=== PATIENT | male | born 1980 | race American Indian/Alaskan Native ===

== ENCOUNTER 2021-02-17 11:51 | Emergency (ER) | payer MEDICAID ==
--- NOTE | 2021-02-17 12:18 | Emergency Department Report ---
History of Present Illness - General Chief Complaint: Overdose Stated Complaint: OD Time Seen by Provider: 02/17/21 12:14 Source: patient, EMS Mode of arrival: Stretcher Limitations: No Limitations - History of Present Illness Initial Comments: Patient is 40 years old male with history of heroin addicts. Patient stated that he stopped using heroin long time ago. Patient stated that he is visiting from [place] and last night he took half of ecstasy. Patient found unresponsive. EMS gave patient Narcan. Patient now is alert, oriented x3 in no acute distress. Patient denied any suicidal or homicidal ideation. Patient stated that he just wanted to get high. No visual or auditory hallucination. MD Complaint: accidental overdose -: Last night How Overdose Was Discovered: called family/friend Context: Accidental Overdose: wanted to get high Treatments Prior to Arrival: narcan - Related Data Previous Rx's Medication Instructions Recorded Last Taken Type oxyCODONE /ACETAMINOPHEN [Percocet 1 tab PO Q6HR PRN #20 tablet 04/22/15 Unknown Rx 5/325 mg] Oxycodone HCl/Acetaminophen 1 each PO Q6HR PRN #30 tablet 04/30/15 Unknown Rx [Percocet 10/325 mg] Prednisone [predniSONE 10 mg 10 mg PO .TAPER #1 tab.ds.pk 04/30/15 Unknown Rx (6-Day Pack, 21 Tabs)] diazePAM TAB [Valium] 5 mg PO Q8H PRN #21 tablet 04/30/15 Unknown Rx Allergies Allergy/AdvReac Type Severity Reaction Status Date / Time No Known Allergies Allergy Unverified 04/22/15 12:41 ED Review of Systems ROS: Stated complaint: OD Other details as noted in HPI Comment: All other systems reviewed and negative Constitutional: denies: chills, fever Cardiovascular: denies: chest pain, palpitations Gastrointestinal: denies: abdominal pain, nausea, vomiting Musculoskeletal: denies: back pain ED Past Medical Hx - Past Medical History Previous Medical History?: Yes Hx Hypertension: Yes Additional medical history: disc problems - Surgical History Past Surgical History?: No - Social History Smoking Status: Current Every Day Smoker Substance Use Type: Marijuana, Other - Medications Home Medications: Home Medications Medication Instructions Recorded Confirmed Last Taken Type oxyCODONE /ACETAMINOPHEN [Percocet 1 tab PO Q6HR PRN #20 tablet 04/22/15 Unknown Rx 5/325 mg] Oxycodone HCl/Acetaminophen 1 each PO Q6HR PRN #30 tablet 04/30/15 Unknown Rx [Percocet 10/325 mg] Prednisone [predniSONE 10 mg 10 mg PO .TAPER #1 tab.ds.pk 04/30/15 Unknown Rx (6-Day Pack, 21 Tabs)] diazePAM TAB [Valium] 5 mg PO Q8H PRN #21 tablet 04/30/15 Unknown Rx ED Physical Exam - General Limitations: No Limitations General appearance: alert, in no apparent distress, anxious - Head Head exam: Present: atraumatic, normocephalic, normal inspection - Eye Eye exam: Present: normal appearance, PERRL - ENT ENT exam: Present: normal exam, normal orophraynx, mucous membranes moist - Neck Neck exam: Present: normal inspection, full ROM. Absent: tenderness, meni ngismus - Respiratory Respiratory exam: Present: normal lung sounds bilaterally - Cardiovascular Cardiovascular Exam: Present: tachycardia - GI/Abdominal GI/Abdominal exam: Present: soft, normal bowel sounds. Absent: distended, tenderness, guarding, rebound, rigid - Extremities Exam Extremities exam: Present: normal inspection, full ROM, normal capillary refill. Absent: tenderness - Back Exam Back exam: Present: normal inspection, full ROM. Absent: CVA tenderness (R), CVA tenderness (L) - Neurological Exam Neurological exam: Present: alert, oriented X3, CN II-XII intact, normal gait, reflexes normal. Absent: motor sensory deficit - Psychiatric Psychiatric exam: Present: normal mood, anxious. Absent: homicidal ideation, suicidal ideation - Skin Skin exam: Present: warm, intact, normal color ED Course Vital Signs 02/17/21 02/17/21 02/17/21 11:58 12:39 12:49 Temperature 98.6 F Pulse Rate 124 H 107 H Respiratory 17 16 14 Rate Blood Pressure 148/92 147/86 [Right] O2 Sat by Pulse 94 100 Oximetry ED Medical Decision Making - Lab Data Result diagrams: 02/17/21 12:36 02/17/21 12:36 - EKG Data -: EKG Interpreted by In EKG shows normal: sinus rhythm Rate: tachycardia - EKG Data Interpretation: no acute changes - Medical Decision Making Patient is 40 years old male with history of heroin addicts. Patient stated that he stopped using heroin long time ago. Patient stated that he is visiting from [place] and last night he took half of ecstasy. Patient found unrespo nsive. EMS gave patient Narcan. Patient now is alert, oriented x3 in no acute distress. Patient denied any suicidal or homicidal ideation. Patient stated that he just wanted to get high. No visual or auditory hallucination. Patient remained stable with a stable vital sign. Patient did not require any more Narcan. Patient is alert, oriented x3 no acute distress. Patient still denying any suicidal or homicidal ideation. Patient advised to follow-up with his primary care physician in the next 2 to 3 days and to return to the ER if he develop any new symptoms. Critical care attestation.: If time is entered above; I have spent that time in minutes in the direct care of this critically ill patient, excluding procedure time. ED Disposition Clinical Impression: Accidental drug overdose, Substance abuse Disposition: DC-01 TO HOME OR SELFCARE Is pt being admited?: No Condition: Stable Instructions: Substance Use Disorder and Mental Illness, Accidental Drug Poisoning, Adult Referrals: PRIMARY CARE, [Primary Care Provider] - 3-5 Days
[2021-02-17] MEDS ORDERED: SODIUM CHLORIDE 0.9% 1000 ML 1,000 ML IV ONE (12:19)
[2021-02-17] MEDS: ONDANSETRON 4 MG/2 ML INJ IV ONE ×2 (12:41→14:51)
[2021-02-17 12:48] LABS: Basophils % (Auto) 0.5 % (0.0-1.8); Eosinophils # (Auto) 0.1 K/mm3 (0.0-0.4); Eosinophils % (Auto) 0.7 % (0.0-4.3); Hemoglobin 15.7 gm/dl (11.8-15.2); Lymphocytes # (Auto) 2.4 K/mm3 (1.2-5.4); Lymphocytes % (Auto) 25.2 % (13.4-35.0); Mean Corpuscular HGB Conc 33 % (32-34); Mean Corpuscular Volume 99 fl (84-94); Monocytes % (Auto) 10.3 % (0.0-7.3); Platelet Count 231 K/mm3 (140-440); Red Blood Count 4.76 M/mm3 (3.65-5.03); Red Cell Distribution Width 14.8 % (13.2-15.2)
[2021-02-17 13:09] LABS: BUN/Creatinine Ratio 15; Blood Urea Nitrogen 12 mg/dL (9-20); Calcium 8.6 mg/dL (8.4-10.2); Hemolysis Index 65
[2021-02-17] MEDS ORDERED: ONDANSETRON 4 MG/2 ML INJ ONE (14:49)
[2021-02-17 15:46] VITALS: BP 141/87
--- NOTE | 2021-02-19 10:12 | Electrocardiograph Report ---
[facility] Test Date: 2021-02-17 Test Time: 13:40:38 Pat Name: BOBO STAUFFER Department: Room: Gender: M Rn Occupational Health: BAYLEE : 1980 Requested By: NICO CHENG Order Number: [id number] Reading MD: Ashvin Burgess Measurements Intervals [place] Rate: 101 P: 52 [place]: 147 QRS: -12 QRSD: 88 T: 40 QT: 346 QTc: 450 Interpretive Statements Sinus tachycardia Probable left atrial enlargement Probable left ventricular hypertrophy No previous ECG available for comparison Electronically Signed On 02-19-2021 10:12:04 EDT by Ashvin Burgess
== END 2021-02-17 15:45 | disposition home or self-care (01) ==
LOC: ED 11:51
DX: T40.1X1A Poisoning by heroin, accidental (unintentional), initial encounter (principal); I10 Essential (primary) hypertension; F17.200 Nicotine dependence, unspecified, uncomplicated; F12.90 Cannabis use, unspecified, uncomplicated; F19.10 Other psychoactive substance abuse, uncomplicated; Z79.899 Other long term (current) drug therapy; Y92.89 Other specified places as the place of occurrence of the external cause
CPT/HCPCS: 36415; 80048; 85025; 93005; 96361; 96374; 99284; J2405; J7030; 80320; G0480